=== PATIENT | female | born 1990 | race Caucasian/White ===

== ENCOUNTER 2016-08-30 18:47 | Emergency (ER) | payer BC ==
--- NOTE | ~2016-08-30 | CR170 ---
[facility] A Service of [facility] & [facility] RADIOLOGY TEXT RESULTS PATIENT: CELESTE SKELTON LOCATION: SED : [birth year] UNIT #: [id number] AGE: [address]: ESTELA JASSO SEX: F ORDER DR: [id number] [place] [id number] E MR#: [id number] Acc #: [id number] NAME: CELESTE SKELTON. : 1990 SEX: F STUDY DATE/TIME: 08/30/2016 18:38 UNIT: SED ROOM: STUDY DESCRIPTION: CR Knee 2 Views Rt Attending Physician: Estela Jasso Aprn Ordering Physician: Staff Doctor Not On Primary Care Physician: Ye Randall M.D. MEDICAL IMAGING REPORT This report is preliminary unless electronic signature is present. EXAM Right knee series 08/30/2016 HISTORY Knee injury. Gentry a pop anterior/medial/lateral. Tuesday. Injured moving. FINDINGS AP, lateral, and sunrise views of the right knee are presented. Normal bony mineralization. No traumatic fracture or malalignment. There is mild narrowing of the medial joint space compartment. No joint effusion. No acute-appearing soft tissue abnormality. If it would assist in patient management and if the patient has ongoing symptoms, knee could be further evaluated with elective MRI if patient is a candidate. Dictated by... Petros Norris M.D. THIS IS AN ELECTRONICALLY VERIFIED REPORT Petros Norris M.D. at 08/31/2016 5:43 PM JOSH/stephanie TD: 08/31/2016 09:03 JOB #: [id number] MEDICAL IMAGING REPORT
[~2016-08-30 18:47] MED LIST: BACTRIM DS TABL1 TA1 PO; CIPRO PO; IBUPROFEN800 MG PO; MEDROL PO; NO MEDICATIONS; PHENERGAN25 MG PO; PYRIDIUM PO; VOLTAREN50 MG PO
== END 2016-08-30 19:44 | disposition home or self-care (01) ==
LOC: SED 18:47
DX: S86.911A Strain of unspecified muscle(s) and tendon(s) at lower leg level, right leg, initial encounter (principal); E11.9 Type 2 diabetes mellitus without complications; I10 Essential (primary) hypertension; Z88.0 Allergy status to penicillin; Z88.8 Allergy status to other drugs, medicaments and biological substances; X58.XXXA Exposure to other specified factors, initial encounter
CPT/HCPCS: 29530; 73560; 99283; J1885